=== PATIENT | male | born 1930 | race Caucasian/White ===

== ENCOUNTER 2018-10-06 12:51 | Emergency (ER) | payer OTHER ==
[2018-10-06] MEDS ORDERED: LEVALBUTEROL 1.25 MG/3 ML NEB ONE (14:42)
--- NOTE | 2018-10-06 14:43 | RAD REPORT ---
EXAM DESCRIPTION: RAD - Chest Single View - 10/06/2018 2:35 pm CLINICAL HISTORY: Cough;Congestion Chest pain. COMPARISON: Chest Pa And Lat (2 Views) dated 12/23/2016; CHEST SINGLE VIEW dated 07/09/2014; CHEST SING LE VIEW dated 01/01/2014; CHEST PA AND LAT 2 VIEW dated 06/30/2012 FINDINGS: Portable technique limits examination quality. 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 The heart is moderately enlarged. No dis placed fractures.Sternotomy wires present. IMPRESSION: Fibrotic changes throughout the lungs without acute process seen.
[2018-10-06 14:58] LABS: Absolute Lymphocytes (CBC) 0.9 K/uL (0.7-4.9); Basophils % 0.4 % (0-1.3); Eosinophils % 7.2 % (0-4.4); Hematocrit 37.5 % (39.6-49.0); Lymphocytes % 22.2 % (15.3-44.8); MPV 9.6 fL (7.6-11.3); Monocytes % 8.8 % (3.3-12.3); RBC Red Blood Cell Count 3.75 M/uL (4.33-5.43)
[2018-10-06 14:59] LABS: Protime INR 1.3
[2018-10-06 15:15] LABS: Albumin 3.6 g/dL (3.4-5.0); Bilirubin Direct 0.2 mg/dL (0-0.2); Bilirubin Total 0.5 mg/dL (0.2-1.0); Magnesium 2.2 mg/dL (1.8-2.4); Potassium 5.2 mmol/L (3.5-5.1); Protein, Total 8.4 g/dL (6.4-8.2); Troponin (Emerg Dept Use Only) 0.06 ng/mL (0.0-0.045)
[2018-10-06] MEDS ORDERED: METOPROLOL TARTRATE 5 MG/5 ML INJ IV ONE (16:08)
--- NOTE | 2018-10-06 16:22 | EKG ---
Test Date: 2018-10-06 Test Time: 14:46:57 Hydraulic Bull Riveter Operator: JANICE/S MEASUREMENT RESULTS: Intervals: Rate: 69 [place]: QRSD: 152 QT: 460 QTc: 492 [place]: P: [place]: QRS: 91 T: -24 INTERPRETIVE STATEMENTS: Atrial fibrillation Right bundle branch block T wave abnormality, consider inferior ischemia or digitalis effect Abnormal ECG Compared to ECG 12/07/2014 22:57:39 T-wave abnormality now present Possible ischemia now present Sinus rhythm no longer present Electronically Signed On 10-06-18 16:21:13 CDT by Manas Marin
[2018-10-06] MEDS ORDERED: cloNIDine HCl 0.1 MG TAB ONE (17:15)
--- NOTE | 2018-10-06 18:33 | ER ---
Nurse's Notes [facility] Name: Jack Herzog Age: 87 yrs Sex: Male : 1930 Arrival Date: 10/06/2018 Time: 12:55 Bed 5 Private MD: James Noel T Diagnosis: Hypertension poorly controlled, Upper respiratory congestion. Cough Presentation: 10/06 13:02 Presenting complaint: Patient states: Congested cough for 3 days. Transition of care: ss patient was not received from another setting of care. Onset of symptoms was October 03, 2018. Risk Assessment: Do you want to hurt yourself or someone else? Patient reports no desire to harm self or others. Initial Sepsis Screen: Does the patient meet any 2 criteria? No. Patient's initial sepsis screen is negative. Does the patient have a suspected source of infection? No. Patient's initial sepsis screen is negative. Care prior to arrival: None. 13:02 Method Of Arrival: Wheelchair ss 13:02 Acuity: ANTOINE 3 ss Triage Assessment: 13:03 General: Appears in no apparent distress. comfortable, Behavior is calm, cooperative, ss appropriate for age. Pain: Denies pain. Neuro: Level of Consciousness is awake, alert, obeys commands, Oriented to person, place, time, situation, Appropriate for age. Respiratory: Reports cough that is Onset: The symptoms/episode began/occurred gradually, the patient has mild shortness of breath. Derm: Skin is intact, is healthy with good turgor, Skin is pink, warm \T\ dry. normal. 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 - Social history:: Smoking status: Patient/guardian denies using tobacco. - Ebola Screening: : Patient negative for fever greater than or equal to 101.5 degrees Fahrenheit, and additional compatible Ebola Virus Disease symptoms Patient denies exposure to infectious person Patient denies travel to an Ebola-affected area in the 21 days before illness onset No symptoms or risks identified at this time. Screenin:30 Abuse screen: Denies threats or abuse. Denies injuries from another. Nutritional sg screening: No deficits noted. Tuberculosis screening: No symptoms or risk factors identified. Never had TB. Fall Risk None identified. Assessment: 13:30 General: Appears in no apparent distress. well groomed, well developed, well nourished, sg Behavior is calm, cooperative, appropriate for age. Pain: Denies pain. Neuro: Level of Consciousness is awake, alert, obeys commands, Oriented to person, place, time, Editor House Organ are equal bilaterally Moves all extremities. Full function Gait is steady, Speech is normal, Facial symmetry appears normal, Pupils are PERRLA. Cardiovascular: Heart tones S1 S2 present Capillary refill is brisk in bilateral fingers Patient's skin is warm and dry. Chest pain is denied. Respiratory: Airway is patent Respiratory effort is even, unlabored, Respiratory pattern is regular, symmetrical, Breath sounds are coarse. GI: Abdomen is round non-distended, Reports tolerance of fluids, tolerance of food. : No signs and/or symptoms were reported regarding the genitourinary system. EENT: No signs and/or symptoms were reported regarding the EENT system. Derm: Skin is pink, warm \T\ dry. Musculoskeletal: Circulation, motion, and sensation intact. Range of motion: intact in all extremities, Swelling absent. 14:30 Reassessment: Patient appears in no apparent distress at this time. Patient and/or sg family updated on plan of care and expected duration. Pain level reassessed. Patient is alert, oriented x 3, equal unlabored respirations, skin warm/dry/pink. 15:35 Reassessment: Patient appears in no apparent distress at this time. Patient and/or sg family updated on plan of care and expected duration. Pain level reassessed. Patient is alert, oriented x 3, equal unlabored respirations, skin warm/dry/pink. reports throbbing in BUE, reports this sensation happens when the blood pressure is elevated Patient denies pain at this time. 16:30 Reassessment: Patient appears in no apparent distress at this time. Patient and/or sg family updated on plan of care and expected duration. Pain level reassessed. Patient is alert, oriented x 3, equal unlabored respirations, skin warm/dry/pink. 17:30 Reassessment: Patient is alert, oriented x 3, equal unlabored respirations, skin sg warm/dry/pink. awaiting new orders at this time, awaiting decrease in BP after medication administration as ordered Patient denies pain at this time. Vital Signs: 13:03 BP 193 / 80; Pulse 61; Resp 20; Temp 98.1; Pulse Ox 96% on R/A; Weight 79.83 kg; Height ss 5 ft. 10 in. (177.80 cm); 14:00 BP 192 / 72; Pulse 72; Resp 17; Pulse Ox 96% on R/A; sg 15:00 BP 181 / 94; Pulse 72; Resp 17; Pulse Ox 97% on R/A; sg 16:14 BP 173 / 87; Pulse 76; Pulse Ox 96% on R/A; sg 16:15 BP 173 / 87; Pulse 75; Pulse Ox 96% ; sg 16:30 BP 175 / 95; Pulse 72; Pulse Ox 95% on R/A; sg 16:45 BP 191 / 85; Pulse 73; Resp 17; Pulse Ox 95% on R/A; sg 17:00 BP 203 / 81; Pulse 77; Resp 18; Pulse Ox 96% on R/A; sg 17:15 BP 201 / 83; Pulse 73; Pulse Ox 95% on R/A; sg 18:18 BP 194 / 81; Pulse 72; Resp 18; Pulse Ox 100% on R/A; ss 19:16 BP 184 / 85; Pulse 71; ss 13:03 Body Mass Index 25.25 (79.83 kg, 177.80 cm) ss ED Course: 12:55 Patient arrived in ED. as 12:55 James Noel MD is Private Physician. as 13:03 Triage completed. ss 13:03 Arm band placed on left wrist. Patient placed in an exam room. ss 13:25 Chau Rousseau MD is Attending Physician. kdr 13:34 Justin Valencia, BRANDIE is Primary Nurse. sg 14:35 XRAY Chest (1 view) In Process Unspecified. EDMS 14:40 Initial Neb Treatment Given as ordered Patient was instructed and evaluated on sg procedure. 14:45 Initial lab(s) drawn, by me, sent to lab. First set of blood cultures drawn and held at sg bedside. Inserted saline lock: 22 gauge in right antecubital area, using aseptic technique. Blood collected. 14:53 EKG done, by player piano technician. reviewed by Chau Rousseau MD. sm3 18:30 Vamshi Head MD is Referral Physician. kdr 19:16 Patient has correct armband on for positive identification. ss 19:16 No provider procedures requiring assistance completed. IV discontinued, intact, ss bleeding controlled, No redness/swelling at site. Pressure dressing applied. Administered Medications: 14:40 Drug: Xopenex (3) 1.25 mg Route: Inhalation; sg 16:00 Drug: Lopressor 5 mg Route: IVP; Site: right antecubital; sg 16:30 Follow up: Response: No adverse reaction; Blood pressure is unchanged sg 17:14 Drug: cloNIDine 0.1 mg Route: PO; sg 18:00 Follow up: Response: No adverse reaction; Blood pressure is lowered sg Outcome: 18:31 Discharge ordered by . kdr 19:16 Discharged to home via wheelchair, with family. ss 19:16 Condition: good 19:16 Discharge instructions given to patient, family, Instructed on discharge instructions, follow up and referral plans. medication usage, Demonstrated understanding of instructions, follow-up care, medications, Prescriptions given X 3. 19:18 Patient left the ED. ss Signatures: Dispatcher [employer] EDMS Justin Valencia, RN RN Chau Rousseau MD MD kdr Danielle Gandara Shelby, RN RN Earnestine Bettencourt sm3
--- NOTE | 2018-10-06 18:33 | EDPHYS ---
Physician Documentation [facility] Name: Jack Herzog Age: 87 yrs Sex: Male : 1930 Arrival Date: 10/06/2018 Time: 12:55 Bed 5 Private MD: James Noel T ED Physician Chau Rousseau HPI: 10/06 14:11 This 87 yrs old Male presents to ER via Wheelchair with complaints of kdr Wheezing > 1 Year, Congestion. 14:11 The patient presents to the emergency department with wheezing, Current therapy: None, kdr that began without any particular precipitating event, the patient was reported to have. 14:12 The patient or guardian reports cough, that is intermittent, described as mild, with kdr productive sputum, that is yellow, difficulty breathing. Onset: The symptoms/episode began/occurred gradually, Thursday. Modifying factors: The symptoms are alleviated by nothing. the symptoms are aggravated by activity. Associated signs and symptoms: Pertinent positives: Pertinent negatives: chest pain, diarrhea, ear ache, fever, nausea, rhinorrhea, sore throat, vomiting. Severity of symptoms: At their worst the symptoms were mild in the emergency department the symptoms have improved mildly. The patient has not experienced similar symptoms in the past. The patient has been recently seen by a physician: the patient's primary care provider, Dr. Head. 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 - Social history:: Smoking status: Patient/guardian denies using tobacco. - Ebola Screening: : Patient negative for fever greater than or equal to 101.5 degrees Fahrenheit, and additional compatible Ebola Virus Disease symptoms Patient denies exposure to infectious person Patient denies travel to an Ebola-affected area in the 21 days before illness onset No symptoms or risks identified at this time. ROS: 14:12 Constitutional: Negative for fever, chills, and weight loss, Eyes: Negative for injury, kdr pain, redness, and discharge, ENT: Negative for injury, pain, and discharge, Neck: Negative for injury, pain, and swelling, Cardiovascular: Negative for chest pain, palpitations, and edema, Abdomen/GI: Negative for abdominal pain, nausea, vomiting, diarrhea, and constipation, Back: Negative for injury and pain, : Negative for injury, bleeding, discharge, and swelling, MS/Extremity: Negative for injury and deformity, Skin: Negative for injury, rash, and discoloration, Neuro: Negative for headache, weakness, numbness, tingling, and seizure activity. Psych: Negative for depression, anxiety, suicide ideation, homicidal ideation, and hallucinations, Allergy/Immunology: Negative for hives, rash, and allergies, Endocrine: Negative for neck swelling, polydipsia, polyuria, polyphagia, and marked weight changes, Hematologic/Lymphatic: Negative for swollen nodes, abnormal bleeding, and unusual bruising. 14:12 Respiratory: Positive for cough, dyspnea on exertion, shortness of breath, wheezing, Negative for hemoptysis, orthopnea, pleurisy. Exam: 14:12 Constitutional: This is a well developed, well nourished patient who is awake, alert, kdr and in no acute distress. Head/Face: Normocephalic, atraumatic. Eyes: Pupils equal round and reactive to light, extra-ocular motions intact. Lids and lashes normal. Conjunctiva and sclera are non-icteric and not injected. Cornea within normal limits. Periorbital areas with no swelling, redness, or edema. Neck: Trachea midline, no thyromegaly or masses palpated, and no cervical lymphadenopathy. Supple, full range of motion without nuchal rigidity, or vertebral point tenderness. No Meningismus. Chest/axilla: Normal chest wall appearance and motion. Nontender with no deformity. No lesions are appreciated. Cardiovascular: Regular rate and rhythm with a normal S1 and S2. No gallops, murmurs, or rubs. Normal PMI, no JVD. No pulse deficits. Abdomen/GI: Soft, non-tender, with normal bowel sounds. No distension or tympany. No guarding or rebound. No evidence of tenderness throughout. Back: No spinal tenderness. No costovertebral tenderness. Full range of motion. Skin: Warm, dry with normal turgor. Normal color with no rashes, no lesions, and no evidence of cellulitis. MS/ Extremity: Pulses equal, no cyanosis. Neurovascular intact. Full, normal range of motion. Neuro: Awake and alert, GCS 15, oriented to person, place, time, and situation. Cranial nerves II-XII grossly intact. Motor strength 5/5 in all extremities. Sensory grossly intact. Cerebellar exam normal. Normal gait. Psych: Awake, alert, with orientation to person, place and time. Behavior, mood, and affect are within normal limits. 14:12 Respiratory: the patient does not display signs of respiratory distress, Respirations: normal, Breath sounds: rales, wheezing: Vital Signs: 13:03 BP 193 / 80; Pulse 61; Resp 20; Temp 98.1; Pulse Ox 96% on R/A; Weight 79.83 kg; Height ss 5 ft. 10 in. (177.80 cm); 14:00 BP 192 / 72; Pulse 72; Resp 17; Pulse Ox 96% on R/A; sg 15:00 BP 181 / 94; Pulse 72; Resp 17; Pulse Ox 97% on R/A; sg 16:14 BP 173 / 87; Pulse 76; Pulse Ox 96% on R/A; sg 16:15 BP 173 / 87; Pulse 75; Pulse Ox 96% ; sg 16:30 BP 175 / 95; Pulse 72; Pulse Ox 95% on R/A; sg 16:45 BP 191 / 85; Pulse 73; Resp 17; Pulse Ox 95% on R/A; sg 17:00 BP 203 / 81; Pulse 77; Resp 18; Pulse Ox 96% on R/A; sg 17:15 BP 201 / 83; Pulse 73; Pulse Ox 95% on R/A; sg 18:18 BP 194 / 81; Pulse 72; Resp 18; Pulse Ox 100% on R/A; ss 19:16 BP 184 / 85; Pulse 71; ss 13:03 Body Mass Index 25.25 (79.83 kg, 177.80 cm) ss MDM: 14:12 Data reviewed: vital signs, nurses notes, lab test result(s), radiologic studies. kdr Counseling: I had a detailed discussion with the patient and/or guardian regarding: the historical points, exam findings, and any diagnostic results supporting the discharge/admit diagnosis, lab results, radiology results. 18:31 Patient medically screened. [facility] 10/06 14:09 Order name: Basic Metabolic Panel kdr 10/06 14:09 Order name: CBC with Diff kdr 10/06 14:09 Order name: LFT's kdr 10/06 14:09 Order name: Magnesium [facility] 10/06 14:09 Order name: NT PRO-BNP [facility] 10/06 14:09 Order name: PT-INR [facility] 10/06 14:09 Order name: Troponin (emerg Dept Use Only) [facility] 10/06 14:09 Order name: Lactate; Complete Time: 15:20 [facility] 10/06 14:09 Order name: Procalcitonin; Complete Time: 15:34 [facility] 10/06 14:10 Order name: Basic Metabolic Panel; Complete Time: 15:20 EDMS 10/06 14:10 Order name: CBC with Automated Diff; Complete Time: 15:34 EDMS 10/06 14:11 Order name: Liver (Hepatic) Function; Complete Time: 15:20 EDMS 10/06 14:11 Order name: Magnesium; Complete Time: 15:20 EDMS 10/06 14:11 Order name: NT PRO-BNP; Complete Time: 15:20 EDMS 10/06 14:09 Order name: XRAY Chest (1 view); Complete Time: 15:08 [facility] 10/06 14:09 Order name: EKG; Complete Time: 14:11 [facility] 10/06 14:09 Order name: Cardiac monitoring; Complete Time: 14:22 [facility] 10/06 14:09 Order name: EKG - Nurse/Tech; Complete Time: 14:57 [facility] 10/06 14:09 Order name: IV Saline Lock; Complete Time: 14:22 [facility] 10/06 14:09 Order name: Labs collected and sent; Complete Time: 14:22 [facility] 10/06 14:09 Order name: O2 Per Protocol; Complete Time: 14:22 [facility] 10/06 14:09 Order name: O2 Sat Monitoring; Complete Time: 14: [facility] 10/06 14:11 Order name: Protime (+INR); Complete Time: 15:20 EDMS 10/06 14:11 Order name: Troponin (Emerg Dept Use Only); Complete Time: 15:20 EDMS Administered Medications: 14:40 Drug: Xopenex (3) 1.25 mg Route: Inhalation; sg 16:00 Drug: Lopressor 5 mg Route: IVP; Site: right antecubital; sg 16:30 Follow up: Response: No adverse reaction; Blood pressure is unchanged sg 17:14 Drug: cloNIDine 0.1 mg Route: PO; sg 18:00 Follow up: Response: No adverse reaction; Blood pressure is lowered sg Disposition: 10/06/18 18:31 Discharged to Home. Impression: Hypertension poorly controlled, Upper respiratory congestion. Cough. - Condition is Stable. - Discharge Instructions: Acute Bronchitis, Gubo-ge-Pyam, Upper Respiratory Infection, Adult, [id number], Cough, Adult, [id number], Managing Your Hypertension. - Prescriptions for Prednisone 20 mg Oral Tablet - take 1 tablet by ORAL route once daily for 5 days; 5 tablet. Zyrtec 10 mg Oral Tablet - take 1 tablet by ORAL route once daily As needed; 20 tablet. Albuterol Sulfate 90 mcg/actuation - inhale 1-2 puff by INHALATION route every 4-6 hours; 1 Inhaler. - Medication Reconciliation Form, Thank You Letter form. - Follow up: Vamshi Head MD; When: Thursday; Reason: Further diagnostic work-up, Recheck today's complaints, Continuance of care, Re-evaluation by your physician. - Notes: Follow-up Thursday with Dr. Head Signatures: Dispatcher [employer] EDJustin Hale RN RN sg Chau Rousseau MD MD [facility] Joceline Fernandez RN RN ss Corrections: (The following items were deleted from the chart) 19:18 18:31 10/06/2018 18:31 Discharged to Home. Impression: Hypertension poorly controlled, ss Upper respiratory congestion. Cough. Condition is Stable. Forms are Medication Reconciliation Form, Thank You Letter, Antibiotic Education, Prescription Opioid Use. Follow up: Vamshi Head; When: Thursday; Reason: Further diagnostic work-up, Recheck today's complaints, Continuance of care, Re-evaluation by your physician. kdr
[2018-10-06 20:46] VITALS: TEMP 98.1
[2018-10-06 21:01] VITALS: O2SAT 100
[2018-10-06 21:03] VITALS: BP 184/85
== END 2018-10-06 19:18 | disposition home or self-care (01) ==
LOC: ER 12:51
DX: I10 Essential (primary) hypertension (principal); R05 Cough; R09.89 Other specified symptoms and signs involving the circulatory and respiratory systems; Z88.1 Allergy status to other antibiotic agents; Z88.0 Allergy status to penicillin
CPT/HCPCS: 36415; 71045; 80048; 80076; 83605; 83735; 83880; 84145; 84484; 85025; 85610; 93005; 96374; 99284

== ENCOUNTER 2019-06-28 13:34 | Inpatient (IN) | payer OTHER ==
[2019-06-28 14:17] VITALS: BMI 25.9
[2019-06-28] MEDS ORDERED: ACETAMINOPHEN 500 MG TAB PO PRN (14:29)
[2019-06-28] MEDS ORDERED: ONDANSETRON 4 MG/2 ML VIAL IV PRN (14:29)
[2019-06-28] MEDS ORDERED: NA CHLORIDE 0.9% 1,000 ML IV SCH (15:00)
[2019-06-28 15:26] LABS: Absolute Lymphocytes (CBC) 0.8 K/uL (0.7-4.9); Basophils % 0.7 % (0-1.3); Lymphocytes % 25.5 % (15.3-44.8); MPV 9.8 fL (7.6-11.3); RBC Red Blood Cell Count 3.26 M/uL (4.33-5.43)
--- NOTE | 2019-06-28 15:29 | EKG ---
Test Date: 2019-06-28 Test Time: 15:11:39 Cable Former: JANICE MEASUREMENT RESULTS: Intervals: Rate: 69 [place]: QRSD: 172 QT: 466 QTc: 499 [place]: P: [place]: QRS: 161 T: -20 INTERPRETIVE STATEMENTS: Atrial fibrillation Right bundle branch block T wave abnormality, consider inferior ischemia or digitalis effect Abnormal ECG Compared to ECG 10/06/2018 14:46:57 No significant changes Electronically Signed On 06-28-19 15:28:31 CDT by Vamshi Head
[2019-06-28 15:42] LABS: Albumin 3.3 g/dL (3.4-5.0); Bilirubin Total 0.7 mg/dL (0.2-1.0); Magnesium 2.1 mg/dL (1.8-2.4); Phosphorus 3.4 mg/dL (2.5-4.9); Protein, Total 8.2 g/dL (6.4-8.2)
[2019-06-28] MEDS ORDERED: HYDRALAZINE HCL 20 MG/ML VIAL IV PRN (15:45)
[2019-06-28 15:51] LABS: Potassium 6.4 mmol/L (3.5-5.1)
[2019-06-28] MEDS ORDERED: D50W 25 GM/50 ML SYRINGE/VIAL IV PRN (15:53)
[2019-06-28] MEDS ORDERED: GLUCAGON 1 MG/VIAL IM PRN (15:53)
[2019-06-28] MEDS ORDERED: ALBUTEROL 2.5 MG/3 ML NEB SOL NEB ONE ×2 (16:00→17:00)
[2019-06-28] MEDS: DOXAZOSIN 4 MG TAB PO SCH (16:00)
[2019-06-28 16:08] LABS: Urine Appearance CLEAR; Urine Bilirubin NEGATIVE (NEG); Urine Blood 1+ (NEG); Urine Color YELLOW; Urine Glucose TRACE (NEG); Urine Protein 3+ (NEG); Urine Specific Gravity 1.015 (1.005-1.030); Urine Urobilinogen 0.2 mg/dL (0.2-1.0)
[2019-06-28] MEDS ORDERED: INSULIN -REGULAR HUMAN 50 UNIT/0.5 ML ML IV ONE (16:15)
[2019-06-28] MEDS: INSULIN -REGULAR HUMAN 50 UNIT/0.5 ML ML SQ SCH ×2 (16:30→20:42)
[2019-06-28 16:43] LABS: Urine Bacteria <20 /HPF (NONE SEEN); Urine Culture Reflex Order NOT NEEDED; Urine RBC <5 /HPF (NONE SEEN)
--- NOTE | 2019-06-28 16:52 | RAD REPORT ---
EXAM DESCRIPTION: US - Extrem Venous W Compress Danial - 06/28/2019 4:35 pm CLINICAL HISTORY: lower ext swelling Bilateral leg edema and swelling. COMPARISON: No comparisons TECHNIQUE: Real-time sonographic interrogation of the left and right lower extremity deep venous sys tems was performed. FINDINGS: Normal compressibility, flow augmentation, phasic flow and spontaneous flow is identified in both the left and right lower extremity deep venous systems. IMPRESSION: No sonographic evidence of left or right lower extremity deep venous thrombosis.
--- NOTE | 2019-06-28 16:56 | RAD REPORT ---
EXAM DESCRIPTION: US - Renal Ultrasound-Complete - 06/28/2019 4:35 pm CLINICAL HISTORY: janine,ANASARCA Flank pain COMPARISON: RP EXAM COMPLETE dated 04/23/2012 FINDINGS: Both kidneys are normal in size, shape and echotexture. The right kidney measures 8.8 x 4.5 x 4.3 cm. No hydronephrosis, focal mass or perinephric fluid. The left kidney measures 10.5 x 5.3 x 5.0 cm. No hydronephrosis, focal mass or perinephric fluid. The urinary bladder is incompletely distended without gross abnormality seen. IMPRESSION: Unremarkable renal sonogram.
[2019-06-28] MEDS ORDERED: CALCIUM GLUC 10% INJ 4.65 MEQ in NA CHLORIDE 0.9% 100 ML IV ONE (17:00)
[2019-06-28] MEDS ORDERED: D50W 25 GM/50 ML SYRINGE/VIAL IV ONE (17:00)
[2019-06-28] MEDS ORDERED: SOD POLYSTYREN SUL 15 GM/60 ML UCUP PO ONE (17:00)
[2019-06-28] MEDS ORDERED: ENOXAPARIN 30 MG/0.3 ML SQ SCH (17:00)
[2019-06-28] MEDS: NA CHLORIDE 0.9% 1,000 ML IV SCH (17:01)
--- NOTE | 2019-06-28 17:19 | RAD REPORT ---
EXAM DESCRIPTION: RAD - Chest Single View - 06/28/2019 5:13 pm CLINICAL HISTORY: SOB Chest pain. COMPARISON: Chest Single View dated 10/06/2018; Chest Pa And Lat (2 Views) dated 12/23/2016; CHEST SING LE VIEW dated 07/09/2014; CHEST SINGLE VIEW dated 01/01/2014 FINDINGS: Portable technique limits examination quality. Mild interstitial prominence is again seen, unchanged. This has the appearance of chronic fibrosis. T he heart is normal in size. Sternotomy wires present. IMPRESSION: No acute intrathoracic process suspected.
[2019-06-28] MEDS ORDERED: DOXAZOSIN 2 MG TAB ONE (17:34)
[2019-06-28] MEDS: APIXABAN 2.5 MG TABLET PO SCH (20:41)
[2019-06-28] MEDS: METOPROLOL TAR 50 MG TAB PO SCH (20:41)
--- NOTE | 2019-06-29 01:38 | HP ---
Date of Admission: 06/28/2019 Chief Complaint: Orthopnea, edema. Code Status: Full. Patient has a medical power of trust and estates attorney and living will. Consultants: Dr. Sweeney with Nephrology. History Of Present Illness: Patient is an 88-year-old male with past medical history of coronary artery disease, status post CABG; diabetes mellitus type 2, diet controlled, not on any specific medications, well controlled; essential hypertension; hepatitis; kidney disease with creatinine around 3, who has been in his usual state of health until recently approximately several days ago. Patient started having edema of his lower extremities with some redness. Patient was started on doxycycline by his primary with no significant change. He is also having some orthopnea, was seen by his psychiatric clinical nurse specialist today and was recommended to go see his sieve grader tender, who recommended the patient to be admitted to the hospital for further evaluation and workup, possible initiation of dialysis. Patient's symptoms are constant, moderate, progressively worsening. He otherwise denies any nausea, vomiting, fever, chills, cough, congestion. No fever. Patient did report some diarrhea, which is likely secondary to his antibiotics. Past Medical History: Hypertension, coronary artery disease, noninsulin- requiring diabetes, chronic kidney disease stage 3, hepatitis. Surgical History: Heart stents on 12/27/2013, triple bypass in 2005, carotid artery surgery, TURP in 2012, carpal tunnel surgery to the right wrist, bilateral cataract surgery. Allergies: PENICILLIN AND BACTRIM CAUSES ANAPHYLAXIS. Medications: As per medication reconciliation list. Social History: Patient denies any tobacco use, alcohol use, or illicit drug use. Patient is , independent in his activities of daily living. Family History: Mother and brother both had heart disease. Review of Systems: Ten-point system reviewed, negative except as per HPI. Physical Examination: Vital Signs: Temperature 97.9, heart rate 75, blood pressure 187/91, respirations 16, O2 98% on room air. General: Awake, alert, oriented x3, not in any acute distress. Mildly ill- appearing male. CV: S1, S2. Regular rate and rhythm. Peripheral pulses weak. HEENT: Normocephalic, atraumatic. PERRLA. EOMI. Moist mucous membranes. Oropharynx is clear. Poor dentition. Neck: Supple. Trachea midline. Respiratory: Somewhat diminished breath sounds. No wheezing or stridor. Minimal crackles heard. Gastrointestinal: Abdomen is soft, nontender, nondistended. Positive bowel sounds. No guarding or rigidity. Extremities: No clubbing or cyanosis. Patient has bilateral lower extremity edema with some calf tightness. No calf tenderness. Neuro: Cranial nerves 2 through 12 intact grossly. No focal neurological deficit. Speech is normal. Strength is symmetric bilateral upper and lower extremities. Sensation intact to light touch. Skin: Patient has chronic venous stasis changes of bilateral lower extremities ; however, the right lower extremity is slightly more erythematous with some warmth to touch. Psych: Mood is okay. Affect is full. Insight and judgment are good. Laboratory Data: Currently pending. Assessment: An 88-year-old male with: 1. Shortness of breath, likely secondary to volume overload and anasarca. We will obtain chest x-ray and . We will provide supplemental oxygen as needed. 2. Anasarca, likely due to worsening kidney function. We will obtain BMP. Appreciate Nephrology input. Patient may need to be initiated on dialysis. 3. Coronary artery disease, status post CABG and stents. We will resume home medications as appropriate. Patient is on Eliquis for anticoagulation. 4. Essential hypertension, stable. We will resume home medications. 5. Chronic venous stasis changes of lower extremities. We will obtain bilateral venous Doppler to rule out DVT. Patient does have some swelling and tightness. 6. Orthopnea, likely secondary to anasarca. We will obtain echocardiogram to rule out congestive heart failure. Patient has risk factors including heart disease and hypertension, long-standing DVT prophylaxis with Lovenox renally dosed. Plan: 1. Admit patient to Med-Surg, place as inpatient. Length of stay greater than 2 midnights. Patient was recently on doxycycline for possible lower extremity cellulitis. Doubt cellulitis at this time. 2. Resume home medications as appropriate. We will order CBC, CMP, BNP, TSH, chest x-ray, and echocardiogram. We will rule out DVT with Doppler sonogram. ADDENDUM:labs reviewed. potassium elevated. CXR reviewed. doppler sono reviewed. no DVT. Assessment Hyperkalemia:will give treatment and recheck in 2 hrs /ANITHA Voice ID: [id number] [facility]IVERS[facility] HOSPITALJuliette
[2019-06-29] MEDS ORDERED: TEMAZEPAM 15 MG CAP PO PRN (02:48)
[2019-06-29 04:26] LABS: Absolute Lymphocytes (CBC) 0.6 K/uL (0.7-4.9); Basophils % 0.6 % (0-1.3); Hematocrit 27.9 % (39.6-49.0); Lymphocytes % 20.5 % (15.3-44.8); MPV 11.2 fL (7.6-11.3); RBC Red Blood Cell Count 2.78 M/uL (4.33-5.43)
[2019-06-29] MEDS: DOXAZOSIN 4 MG TAB PO SCH ×2 (04:51→16:00)
[2019-06-29 04:56] LABS: Blood Morphology Comment NOTED (NOT SEEN); Burr Cells 1+; Platelet Estimate DECR; Urine White Blood Cell Casts OK
[2019-06-29 05:22] LABS: Albumin 2.8 g/dL (3.4-5.0); Bilirubin Total 0.5 mg/dL (0.2-1.0); Ferritin 56.9 ng/mL (26-388); Folic Acid, (Folate) 7.4 ng/mL (3.1-17.5); Protein, Total 6.8 g/dL (6.4-8.2); Uric Acid 5.9 mg/dL (3.5-7.2)
[2019-06-29 05:24] LABS: Potassium 5.6 mmol/L (3.5-5.1)
[2019-06-29] MEDS ORDERED: SOD POLYSTYREN SUL 15 GM/60 ML UCUP PO ONE (06:20)
[2019-06-29] MEDS: INSULIN -REGULAR HUMAN 50 UNIT/0.5 ML ML SQ SCH ×4 (07:30→21:00)
[2019-06-29 08:00] LABS: Rheumatoid Factor NEG (NEG)
[2019-06-29] MEDS ORDERED: TORSEMIDE 20 MG TAB PO SCH (09:00)
[2019-06-29 09:49] LABS: Urine Protein/Creatinine Ratio 2.52 ratio (<0.15)
[2019-06-29] MEDS: APIXABAN 2.5 MG TABLET PO SCH ×2 (09:51→20:30)
[2019-06-29] MEDS: SODIUM BICARB 325 MG TAB PO SCH ×2 (09:51→20:30)
[2019-06-29] MEDS: FUROSEMIDE 40 MG/4 ML VIAL IV SCH ×2 (09:51→17:33)
[2019-06-29] MEDS: METOPROLOL TAR 50 MG TAB PO SCH ×2 (09:54→21:00)
[2019-06-29] MEDS: NA CHLORIDE 0.9% 1,000 ML IV SCH (11:00)
--- NOTE | 2019-06-29 12:53 | P.PN ---
Subjective Date of Service: 06/29/19 Patient states his lower extremity swelling have significantly improved. He also states the shortness of breath has gotten much better. Physical Examination - Vital Signs Temperature: 97.9 F Blood Pressure: 130/60 Pulse: 63 Respirations: 17 Pulse Ox (%): 97 - Physical Exam General: Alert, In no apparent distress, Oriented x3 HEENT: PERRLA, Mucous membr. moist/pink, Sclerae nonicteric Neck: Supple, JVD not distended Respiratory: Clear to auscultation bilaterally, Normal air movement Cardiovascular: Regular rate/rhythm, Normal S1 S2, Edema (Bilateral lower extremities, right greater than left.) Gastrointestinal: Normal bowel sounds, Soft and benign, Non-distended, No tenderness Musculoskeletal: Erythema (Bilateral lower extremities, worse on the right) Integumentary: Erythema Neurological: Normal speech, Normal strength at 5/5 x4 extr - Studies Laboratory Data (last 24 hrs) 06/29/19 04:07: Sodium 142, Potassium 5.6 H*, BUN 64 H, Creatinine 3.36 H, Glucose 151 H, Uric Acid 5.9 D, Phosphorus 3.0, Total Bilirubin 0.5, AST 15, ALT 15, Alkaline Phosphatase 75 06/29/19 04:07: WBC 2.8 L, Hgb 9.2 L, Hct 27.9 L D, Plt Count 67 L D 06/28/19 19:00: Potassium 5.5 H 06/28/19 14:48: Sodium 143, Potassium 6.4 H*, BUN 62 H, Creatinine 3.32 H, Glucose 97, Phosphorus 3.4, Magnesium 2.1, Total Bilirubin 0.7, AST 21, ALT 17, Alkaline Phosphatase 87 06/28/19 14:48: WBC 3.1 L, Hgb 10.9 L, Hct 33.0 L, Plt Count 84 L Assessment And Plan - Current Problems (Diagnosis) (1) Volume overload Current Visit: Yes Status: Acute (2) Chronic kidney disease, stage 4 (severe) Current Visit: Yes Status: Chronic (3) Bilateral leg edema Current Visit: Yes Status: Chronic (4) Coronary artery disease Current Visit: Yes Status: Chronic (5) Chronic venous stasis dermatitis Current Visit: Yes Status: Chronic (6) Anemia Current Visit: Yes Status: Chronic - Plan Nephrology input appreciated. Patient has clinically improved. Continue IV Lasix Monitor renal function on Lasix therapy. Nephrology is following. Keep lower extremities elevated while in sitting or supine position. Correct hyperkalemia. Monitor CBC and renal panel.
[2019-06-29] MEDS ORDERED: CALCITROL 0.25 MCG CAP PO SCH (13:00)
[2019-06-29] MEDS ORDERED: DOXAZOSIN 2 MG TAB ONE (16:31)
--- NOTE | 2019-06-29 17:38 | CON ---
Date of Consultation: 06/29/2019 Reason For Consultation: Elevated BUN and creatinine, fluid management. History Of Present Illness: This is a pleasant 88-year-old gentleman, well known to me from the [facility] with significant past medical history of coronary artery disease, status post CABG, complicated wi th congestive heart failure; diabetes, complicated with neuropathy, nephropathy; hypertension; hyperl ipidemia; chronic kidney disease, baseline, stage 4, secondary to diabetic nephropathy, baseline crea tinine around 2.6 to 2.8, GFR around 22, was last seen in the office almost a couple of years ago. Sisi jerez apparently came to his primary in March with his GFR down to the 18s, then repeated lab chris wing further decline in the creatinine. For that reason, referred back to us. The patient denied ta rigo any nonsteroidal. No recent change in his medication. The patient is complaining of some short ness of breath and increase in his leg swelling. For that reason, patient was referred to the hospit al. Over the night, the patient was started on Lasix. Patient recently was treated with doxycycline and was also increased his torsemide by his cement patcher. The patient denied taking any nonsteroidal. No IV contrast. No other change in his medication. No fever. No chills. As I mentioned, over the night, patient was started on aggressive diuresis. Kidn ey function stabilized. Shortness of breath has been subsided. Past Medical History: Includes. 1.Hypertension. 2.Coronary artery disease, complicated with congestive heart failure, status post CABG. 3.Diabetes complicated with neuropathy and nephropathy. 4.Chronic kidney disease, stage 4, advanced, normal size kidney, proteinuric, secondary to cardioren al/hypertensive nephrosclerosis/diabetic nephropathy. 5.Prostate hypertrophy status post TURP. Past Surgical History: Includes, 1.PTCA back in 2013. 2.Bypass in 2005. 3.Carotid endarterectomy. 4.TURP. 5.Carpal tunnel. 6.Cataract. Allergies: TO PENICILLIN AND BACTRIM. Home Medications: Include, 1.Torsemide. 2.Spironolactone. 3.Doxycycline. 4.Doxazosin. 5.Eliquis. 6.Metoprolol. Social History: Lives with the family. Denies smoking. Denies drinking. Denies drug abuse. Family History: Positive for heart disease and diabetes. Review of Systems: Head and Neck: No red eye. No ear pain. GI: No nausea, no vomiting. : No polyuria, has nocturia. Under Trimmer: Not applicable. Respiratory: Has shortness of breath. Cardiovascular: Has leg swelling. Endocrine: No polydipsia. Skin: No rash. Neuro: Has neuropathy. Musculoskeletal: Generalized fatigue. Physical Examination: Vital Signs: When I saw the patient, blood pressure of 130/60, pulse of 63, afebrile. Chest: Crackles, bilateral bases. Heart: S1, S2. Systolic murmur. Abdomen: Soft. Nontender. Extremities: +1 edema, erythema bilateral. Laboratory Data: WBC 2.8, H and H 9.2/27.9, platelets 67. Sodium 142, potassium 5.6, bicarb 20, BUN 64, creatinine 3.3, GFR of 17, glucose 151, uric acid 5.9, calcium 8.6, phosphorus of 3. Albumin 2. 8. Serum protein electrophoresis still pending. Folate 7.4. TSH of 2.5. PTH of 379. Urinalysis, negative for infection. PC ratio 2.5. Serology and immunology still pending. Renal ultrasound, nor mal sized kidney, 8.8 x 10.5. Assessment And Plan: 1.Chronic kidney disease, stage 4, progression, over-volume with respiratory symptoms. I am going t o go ahead and discontinue intravenous fluid. Continue current diuresis dose, and we will switch to intravenous Lasix and we will monitor the patient closely. 2.Acidosis, non-anion gap, secondary to renal failure. I agree with sodium bicarb. We will monitor . 3.Hyperkalemia, secondary to renal failure, on spironolactone. Discontinue spironolactone. Start d iuresing, and we will monitor. 4.Anemia of chronic kidney disease. We will send for anemia workup with the presence of hyperkalemi a. Gastrointestinal loss needs to be ruled out. We will send for fecal occult. 5.secondary hyperparathyroidism. Start the patient on calcitriol. We will follow up on the vitamin D level. 6.Diabetes. As by primary. 7.Congestive heart failure. We will optimize the fluid status. 8.Cellulitis of the lower extremity. I will start the patient on Levaquin. Thank you, Dr. Simmons for allowing us to participate in the care of your patient. MARIELA Voice ID: [id number] Report ID: [id number]
[2019-06-30] MEDS: DOXAZOSIN 4 MG TAB PO SCH ×2 (04:20→16:00)
[2019-06-30] MEDS: INSULIN -REGULAR HUMAN 50 UNIT/0.5 ML ML SQ SCH ×3 (07:30→16:30)
[2019-06-30] MEDS ORDERED: levoFLOXacin 250 MG TAB PO SCH (09:00)
[2019-06-30 09:51] LABS: Albumin 3.2 g/dL (3.4-5.0); Ferritin 63.2 ng/mL (26-388); Folic Acid, (Folate) 10.2 ng/mL (3.1-17.5); Potassium 5.5 mmol/L (3.5-5.1)
[2019-06-30 10:06] VITALS: O2SAT 97
[2019-06-30] MEDS: SODIUM BICARB 325 MG TAB PO SCH (10:07)
[2019-06-30] MEDS: APIXABAN 2.5 MG TABLET PO SCH (10:07)
[2019-06-30] MEDS: FUROSEMIDE 40 MG/4 ML VIAL IV SCH ×2 (10:08→16:46)
[2019-06-30] MEDS: METOPROLOL TAR 50 MG TAB PO SCH (10:11)
[2019-06-30] MEDS ORDERED: ALBUTEROL 2.5 MG/3 ML NEB SOL NEB ONE (10:48)
[2019-06-30] MEDS ORDERED: D50W 25 GM/50 ML SYRINGE/VIAL IV PRN (10:49)
[2019-06-30] MEDS ORDERED: D50W 25 GM/50 ML SYRINGE/VIAL IV ONE (10:49)
[2019-06-30] MEDS ORDERED: INSULIN -REGULAR HUMAN 50 UNIT/0.5 ML ML IV ONE (10:49)
[2019-06-30] MEDS ORDERED: GLUCAGON 1 MG/VIAL IM PRN (10:49)
[2019-06-30] MEDS ORDERED: SOD FERRIC GLUC COMPLX/SUCROSE 250 MG in NA CHLORIDE 0.9% 250 ML IV SCH (11:00)
--- NOTE | 2019-06-30 12:18 | ECHO ---
HEIGHT: 5 ft 10 in WEIGHT: 181 lb 0 oz DATE OF STUDY: 06/30/[address]: Dinesh Macias MD 2-DIMENSIONAL: YES M.MODE: YES DOPPLER: YES COLOR FLOW: YES TDS: NO PORTABLE: NO DEFINITY: NO BUBBLE STUDY: NO DIAGNOSIS: EDEMA CARDIAC HISTORY: CATHERIZATION: YES SURGERY: YES PROSTHETIC VALVE: NO PACEMAKER: NO MEASUREMENTS (cm) DIASTOLIC (NORMALS) SYSTOLIC (NORMALS) IVSd 1.1 (0.6-1.2) LA Diam 4.0 (1.9-4.0) LVEF 67% LVIDd 4.6 (3.5-5.7) LVIDs 2.9 (2.0-3.5) %FS 37% LVPWd 1.1 (0.6-1.2) Ao Diam 2.9 (2.0-3.7) 2 DIMENSIONAL ASSESSMENT: RIGHT ATRIUM: NORMAL LEFT ATRIUM: NORMAL RIGHT VENTRICLE: NORMAL LEFT VENTRICLE: NORMAL TRICUSPID VALVE: NORMAL MITRAL VALVE: MILD PULMONARY HYPERTENSION PULMONIC VALVE: NORMAL AORTIC VALVE: SCLEROSIS PERICARDIAL EFFUSION: NONE AORTIC ROOT: NORMAL LEFT VENTRICULAR WALL MOTION: NORMAL DOPPLER/COLOR FLOW: MILD TRICUSPID REGURGITATION. MILD PULMONARY HYPERTENSION. COMMENTS: MILD PULMONARY HYPERTENSION. RIGHT VENTRICULAR SYSTOLIC PRESSURE 43 mmHg. NORMAL LEFT VENTRICULAR SIZE AND FUNCTION. MILD PULMONARY HYPERTENSION. AORTIC SCLEROSIS WITH NO STENOSIS. TECHNOLOGIST: Rogerio PERDOMO
--- NOTE | 2019-06-30 14:00 | PN ---
Date of Progress Note: 06/30/2019 Subjective: The patient was admitted with over-volume acute kidney injury. Physical Examination: Vital Signs: When I saw the patient, blood pressure 153/67, pulse of 67, afebrile. The patient had urine output of 2200. Chest: Crackles in the base. Heart: S1, S2. Regular. Abdomen: Soft, nontender. Extremity: Plus edema, but much better. Erythema has been subsided. Laboratory Data: WBC 2.8, H and H 9.2/27.9, platelets of 67. Sodium 143, potassium 5.5, bicarb 22, BUN 59, creatinine 3.6, calcium 8.9, magnesium normal, phosphorus 4. Iron saturation of 18, ferritin of 63, albumin 3.2, folate of 10. Current Medications: The patient is on include: 1.Levaquin. 2.Eliquis. 3.Cardura. 4.Metoprolol. 5.Temazepam. 6.Lasix 80 b.i.d. 7.Sodium bicarb oral 650 b.i.d. 8.Calcitriol. Assessment And Plan: 1.Acute kidney injury on chronic kidney disease, progression of the disease. Normal-sized kidney, p roteinuric with close to nephrotic range of proteinuria, starting to be in normal volume. I am going to go ahead and continue on the diuresis and we will monitor the patient. Patient will be cleared f rom the Renal standpoint for discharge planning. To follow up in the office in 2-3 weeks. No need t o initiate any renal replacement therapy. 2.Hypertension. Controlled, optimal. Continue current medication. We will keep utilizing blood pr essure to establish better volume control. 3.Hyperkalemia. Continue diuresis. I am going to give the patient albuterol nebulizer and D50 with insulin and we will follow up the patient. We will start the patient on Veltassa as an outpatient. 4.Secondary hyperparathyroidism. Continue calcitriol. 5.Iron-deficiency anemia with a drop in hemoglobin. Patient is going to need GI workup. 6.Diabetes. As by primary. JATIN/MODL Voice ID: [id number] Report ID: [id number]
--- NOTE | 2019-06-30 14:25 | P.DS ---
Admission Date: 06/28/19 Discharge Date: 06/30/19 Disposition: ROUTINE DISCHARGE Discharge Condition: FAIR Consultations: Nephrology-Dr. Sweeney. - Problems (1) Volume overload Current Visit: Yes Status: Acute (2) Chronic kidney disease, stage 4 (severe) Current Visit: Yes Status: Chronic (3) Bilateral leg edema Current Visit: Yes Status: Chronic (4) Coronary artery disease Current Visit: Yes Status: Chronic (5) Chronic venous stasis dermatitis Current Visit: Yes Status: Chronic (6) Anemia Current Visit: Yes Status: Chronic Brief History of Present Illness: 88-year-old gentleman with a history chronic kidney disease, diabetes and cardiac disease presented to the emergency department with progressive lower extremity swelling and orthopnea. The patient had hyperkalemia with potassium 6.4 in the ED. His BNP was also markedly elevated. Measures to correct the hyperkalemia was started in the ED patient admitted for further management. Hospital Course: Patient received multiple doses of oral Kayexalate, another treatment for hyperkalemia including insulin, and D50 and BICARB. The patient was seen and evaluated by nephrology Dr. Sweeney. Patient was started on oral bicarb, Aldactone discontinued, and started on IV Lasix therapy for volume overload and peripheral edema. Patient's symptoms improved with treatment, hyperkalemia improved. Echocardiogram reported normal EF and mild pulmonary hypertension. He was treated for possible cellulitis of the lower extremity with oral antibiotics. Patient clinical condition has improved. He is discharged with with increased dose of Lasix and also to start Veltassa to treat the hyperkalemia. Vital Signs/Physical Exam: Temp Pulse Resp BP Pulse Ox 97.7 F 57 16 148/67 H 97 06/30/19 12:00 06/30/19 12:00 06/30/19 12:00 06/30/19 12:00 06/30/19 12:00 General: Alert, In no apparent distress, Oriented x3 HEENT: Mucous membr. moist/pink, Sclerae nonicteric Neck: Supple, JVD not distended Respiratory: Clear to auscultation bilaterally, Normal air movement Cardiovascular: Regular rate/rhythm, Normal S1 S2, Edema (1+ bilateral lower extremity pitting edema.) Gastrointestinal: Normal bowel sounds, Soft and benign, Non-distended, No tenderness Integumentary: Erythema (Mild erythema of bilateral lower extremities.) Neurological: Normal speech, Normal strength at 5/5 x4 extr Laboratory Data at Discharge: WBC 2.8 K/uL (4.3-10.9) L 06/29/19 04:07 Hgb 9.2 g/dL (13.6-17.9) L 06/29/19 04:07 Hct 27.9 % (39.6-49.0) L D 06/29/19 04:07 Plt Count 67 K/uL (152-406) L D 06/29/19 04:07 Sodium 143 mmol/L (136-145) 06/30/19 04:31 Potassium 5.5 mmol/L (3.5-5.1) H 06/30/19 04:31 BUN 59 mg/dL (7-18) H 06/30/19 04:31 Creatinine 3.60 mg/dL (0.55-1.3) H 06/30/19 04:31 Glucose 94 mg/dL (74-106) 06/30/19 04:31 Uric Acid 5.9 mg/dL (3.5-7.2) D 06/29/19 04:07 Phosphorus 4.0 mg/dL (2.5-4.9) 06/30/19 04:31 Magnesium 2.1 mg/dL (1.8-2.4) 06/28/19 14:48 Total Bilirubin 0.5 mg/dL (0.2-1.0) 06/29/19 04:07 AST 15 U/L (15-37) 06/29/19 04:07 ALT 15 U/L (12-78) 06/29/19 04:07 Alkaline Phosphatase 75 U/L (45-117) 06/29/19 04:07 Home Medications: Doxazosin [Cardura*] 2 tab PO Q12H 01/02/14 Metoprolol Tartrate [Lopressor*] 2 tab PO BID 01/02/14 Apixaban [Eliquis *] 2.5 mg PO BID 06/28/19 Calcitrol [Rocaltrol*] 0.25 mcg PO Q48H #15 cap 06/30/19 Furosemide [Lasix] 80 mg PO BID #60 tablet 06/30/19 Na Bicarb Tab [Sodium Bicarb 325 MG Tab*] 650 mg PO BID #60 tab 06/30/19 Patiromer Calcium Sorbitex [Veltassa] 8.4 gm PO DAILY #30 powd.pack 06/30/19 levoFLOXacin [Levaquin*] 250 mg PO DAILY #5 tab 06/30/19 New Medications: Calcitrol [Rocaltrol*] 0.25 mcg PO Q48H #15 cap Furosemide [Lasix] 80 mg PO BID #60 tablet levoFLOXacin [Levaquin*] 250 mg PO DAILY #5 tab Na Bicarb Tab [Sodium Bicarb 325 MG Tab*] 650 mg PO BID #60 tab Patiromer Calcium Sorbitex [Veltassa] 8.4 gm PO DAILY #30 powd.pack Diet: Renal Activity: Ad melissa Followup: Debi Sweeney MD [ACTIVE - CAN ADMIT] - 1-2 Weeks Time spent managing pt's care (in minutes): 42
[2019-06-30] MEDS ORDERED: SOD POLYSTYREN SUL 15 GM/60 ML UCUP PO ONE (15:00)
[2019-06-30] MEDS ORDERED: DOXAZOSIN 2 MG TAB ONE (16:10)
[2019-06-30 16:47] VITALS: BP 151/65
[2019-06-30 16:55] VITALS: TEMP 97.6
[2019-07-03 09:06] LABS: Hepatitis C Virus RNA (PCR)log <1.18 log IU/mL
[2019-07-05 13:46] LABS: Vitamin D 1,25-Dihydroxy Total 11 pg/mL (18-72); Vitamin D,1,25-OH2, D2 <8 pg/mL
[2019-07-07 05:34] LABS: HBsAG Nonreactive (Nonreactive)
[2019-07-11 08:31] LABS: Albumin, (SPE) 3.1; Alpha-1-Globulins 0.3; Alpha-2-Globulins 0.6; Gamma Globulins 1.4
[2019-07-11 08:32] LABS: Abnormal Protein Band 3 SENT
[2019-07-11 08:41] LABS: INTERPRETATION NORMAL
== END 2019-06-30 17:34 | disposition home or self-care (01) | DRG 641 ==
LOC: 4TH 13:48
PROVIDERS: ADMIT Family Medicine; ATTEND Internal Medicine
DX: E87.70 Fluid overload, unspecified (principal); N17.9 Acute kidney failure, unspecified; N18.4 Chronic kidney disease, stage 4 (severe); I13.0 Hypertensive heart and chronic kidney disease with heart failure and stage 1 through stage 4 chronic kidney disease, or unspecified chronic kidney disease; N25.81 Secondary hyperparathyroidism of renal origin; L03.119 Cellulitis of unspecified part of limb; R06.01 Orthopnea; E11.40 Type 2 diabetes mellitus with diabetic neuropathy, unspecified; E11.22 Type 2 diabetes mellitus with diabetic chronic kidney disease; E11.21 Type 2 diabetes mellitus with diabetic nephropathy; I25.10 Atherosclerotic heart disease of native coronary artery without angina pectoris; I50.9 Heart failure, unspecified; K75.9 Inflammatory liver disease, unspecified; E87.5 Hyperkalemia; N40.0 Benign prostatic hyperplasia without lower urinary tract symptoms; E87.2 Acidosis; D50.9 Iron deficiency anemia, unspecified; D63.8 Anemia in other chronic diseases classified elsewhere; I87.2 Venous insufficiency (chronic) (peripheral); Z95.1 Presence of aortocoronary bypass graft
CPT/HCPCS: 36415; 71045; 76770; 80053; 80069; 81001; 82570; 82607; 82652; 82728; 82746; 82947; 83520; 83540; 83735; 83880; 83970; 84100; 84132; 84156; 84165; 84443; 84466; 84550; 85025; 85044; 86021; 86038; 86160; 86225; 86317; 86430; 86704; 86706; 87340; 87522; 93005; 93306; 93970; 94640; 94760; 97110; 97116; 97161; J0360; J0610; J1650; J1940; J2916; J7030

== ENCOUNTER 2019-08-06 08:10 | Emergency (ER) | payer OTHER ==
[2019-08-06] MEDS ORDERED: NA CHLORIDE 0.9% 500 ML ONE ×2 (08:38→09:53)
[2019-08-06 09:02] LABS: Basophils % 0.7 % (0-1.3); Lymphocytes % 24.2 % (15.3-44.8); MPV 10.7 fL (7.6-11.3); RBC Red Blood Cell Count 1.92 M/uL (4.33-5.43)
[2019-08-06 09:04] LABS: Protime INR 1.36
[2019-08-06 09:08] LABS: Hematocrit 19.2 % (39.6-49.0)
[2019-08-06] MEDS ORDERED: PANTOPRAZOLE 40 MG INJ ONE (09:26)
--- NOTE | 2019-08-06 09:33 | ER ---
Nurse's Notes [facility] Name: Jack Herzog Age: 88 yrs Sex: Male : 1930 Arrival Date: 08/06/2019 Time: 08:16 Bed 20 Private MD: Diagnosis: Anemia, unspecified;Syncope and collapse;Gastrointestinal Bleed Presentation: 08/05 08:09 Chief complaint: EMS states: Pt. 88 yr. old, A \T\ O x 4, c/o bright red blood in stool rb1 and this morning he passed out and the family helped him to the floor. Pt. denies falling or hitting his head. Vital signs are stable. BS 174. 18 G R AC with NS bolus infusing. History of CABG, HTN, diabetes, and renal failure. Allergic to Penicillin and Bactrim. He does take Eliquis. Coronavirus screen: Proceed with normal triage. Ebola Screen: Patient negative for fever greater than or equal to 101.5 degrees Fahrenheit, and additional compatible Ebola Virus Disease symptoms. Initial Sepsis Screen: Does the patient meet any 2 criteria? No. Patient's initial sepsis screen is negative. Does the patient have a suspected source of infection? No. Patient's initial sepsis screen is negative. Risk Assessment: Do you want to hurt yourself or someone else? Patient reports no desire to harm self or others. Onset of symptoms was August 05, 2019. 08:09 Method Of Arrival: EMS: [facility] rb1 08:09 Acuity: ANTOINE 3 rb1 Triage Assessment: 08:09 General: Appears in no apparent distress. comfortable, Behavior is calm, cooperative, rb1 Denies fever, feeling ill. Pain: Complains of pain in anterior aspect of right upper chest Pain does not radiate. Pain currently is 3 out of 10 on a pain scale. Pain began 1 day ago. Is continuous. Neuro: Level of Consciousness is awake, alert, obeys commands, Oriented to person, place, time, situation, Reports dizziness, when standing Denies headache. Cardiovascular: Capillary refill < 3 seconds is brisk in bilateral fingers. Respiratory: Airway is patent Respiratory effort is even, unlabored, Respiratory pattern is regular, symmetrical, Denies shortness of breath. GI: Reports bloody stool, since x 1 day Patient currently denies nausea, vomiting. : No signs and/or symptoms were reported regarding the genitourinary system. Derm: Skin is dry, Skin is pale, Skin temperature is warm. Musculoskeletal: Range of motion: intact in all extremities. Historical: - Allergies: 08: Bactrim; rb1 08: PENICILLINS; rb1 - Home Meds: 08: metoprolol tartrate 50 mg Oral tab 2 tabs 2 times per day [Active]; doxazosin 4 mg oral rb1 tab 2 tabs twice a day [Active]; sodium bicarbonate 650 mg Oral tab 650 mg twice a day [Active]; Eliquis 2.5 mg oral tab 1 tab 2 times per day [Active]; allopurinol 100 mg Oral tab 1 tab once daily [Active]; bumetanide 1 mg Oral tab 1 tab once daily [Active]; calcitriol 0.25 mcg oral cap 1 cap every 48 hours [Active]; Vitamin D2 50,000 unit oral cap 1 cap once wkly [Active]; Veltassa 8.4 gram oral pwpk 1 packet once daily [Active]; - PMHx: 08: Hypertension; Diabetes - NIDDM; Myocardial infarction; Renal Failure; rb1 - PSHx: 08: Heart stents; Carotid Artery Surgery; 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 - Social history:: Smoking status: Patient/guardian denies using. - Family history:: not pertinent. - Hospitalizations: : No recent hospitalization is reported. Screenin:09 Abuse screen: Denies threats or abuse. Nutritional screening: No deficits noted. rb1 Tuberculosis screening: No symptoms or risk factors identified. Fall Risk Fall in past 12 months (25 points). Secondary diagnosis (15 points) impaired mobility, IV access (20 points). Ambulatory Aid- Crutches/Cane/Walker (15 pts). Gait- Impaired (20 pts.). Mental Status- Oriented to own ability (0 pts). Total Calderon Fall Scale indicates High Risk Score (45 or more points). Fall prevention measures have been instituted. Side Rails Up X 2 Placed Close to Nursing Station 1:1 Attendant Assigned Frequent Obs/Assessments Occuring As available patient and family educated on Fall Prevention Program and Strategies. Assessment: 08:09 General: See triage assessment. rb1 :08 Reassessment: Patient appears in no apparent distress at this time. Patient and/or rb1 family updated on plan of care and expected duration. Pain level reassessed. Patient is alert, oriented x 3, equal unlabored respirations, skin warm/dry/pink. Pt. reports that he is uncomfortable due to the pain in the right chest, pain 3/10. Provider notified. No new orders received at this time. 10:00 Reassessment: Patient appears in no apparent distress at this time. No changes from rb1 previously documented assessment. 10:10 Reassessment: Initiated platelet infusion. Pt. denies pain at this time. rb1 10:25 Reassessment: Patient appears in no apparent distress at this time. No signs or rb1 symptoms of adverse reaction noted at this time. Pt. denies SOB and itching. Vital signs are stable. 10:38 Reassessment: Gave report to BRANDIE Flowers at [facility]. Information from the [facility] was rb1 given. All questions asked and answered. 10:45 Reassessment: Platelet infusion is complete. No adverse reaction noted at this time. rb1 Pt. tolerated well. 11:00 Reassessment: Patient appears in no apparent distress at this time. Patient and/or rb1 family updated on plan of care and expected duration. Pain level reassessed. Patient is alert, oriented x 3, equal unlabored respirations, skin warm/dry/pink. Respiratory: Denies shortness of breath. 11:15 Reassessment: Initiated infusion for the PRBC. Pt. denies pain at this time. rb1 11:30 Reassessment: Patient appears in no apparent distress at this time. No changes from rb1 previously documented assessment. Gave report to [facility] and verified PRBC's with them. Proper paperwork was filled out and sent with them to continue the blood transfusion. 11:31 Reassessment: No adverse reaction noted at this time. Pt. denies SOB or itching. Vital rb1 signs are stable. Vital Signs: 08:09 BP 113 / 58; Pulse 75; Resp 16; Temp 97.6(O); Pulse Ox 100% on R/A; Weight 77.11 kg rb1 (R); Height 5 ft. 10 in. (177.80 cm) (R); Pain 3/10; 09:09 BP 120 / 57; Pulse 78; Resp 19; Pulse Ox 100% on R/A; Pain 3/10; rb1 10:00 BP 106 / 68; Pulse 77; Resp 16; Temp 97.3; Pulse Ox 100% on R/A; rb1 11:00 BP 121 / 63; Pulse 76; Resp 19; Temp 97.4(TE); Pulse Ox 100% on R/A; rb1 11:30 BP 112 / 70; Pulse 80; Resp 17; Temp 97.6(TE); Pulse Ox 100% on R/A; rb1 08:09 Body Mass Index 24.39 (77.11 kg, 177.80 cm) rb1 ED Course: 08:09 Maintain EMS IV. Dressing intact. Good blood return noted. Site clean \T\ dry. Gauge \T\ rb 1 site: 18 G R AC. Patient maintains SpO2 saturation greater than 95% on room air. 08:09 Arm band placed on right wrist. rb1 08:09 Patient has correct armband on for positive identification. Bed in low position. Call rb1 light in reach. Side rails up X2. monitoring coordinator on. Pulse ox on. NIBP on. Warm blanket given. 08:16 Patient arrived in ED. rn 08:17 Samm Zelaya MD is Attending Physician. rn 08:22 Lorena Mackenzie, BRANDIE is Primary Nurse. rb1 08:28 Triage completed. rb1 08:44 Initial lab(s) drawn, by me, sent to lab. T\T\S collected, blood band applied to patient. em1 Inserted saline lock: 22 gauge in right forearm, using aseptic technique. Blood collected. 09:02 EKG done, by ED staff, reviewed by Samm Zelaya MD. em1 09:28 initiated a transfer with Leigh Moon with the [facility] Transfer [place]. eb 09:[address] Navas the GI documentation nurse for [facility] with Dr. Zelaya for patient eb transfer consultation. 09:[address] Christine the hospitalist documentation nurse for [facility] with Dr. Zelaya for eb patient transfer consultation. 10:11 administrative approval given by Leigh Moon/ patient has been accepted to [facility] 7 Lopez B Rm 20/ Dr. Christine has accepted the patient in transfer/ report to be called to [phone]. 11:40 No provider procedures requiring assistance completed. Patient transferred, IV remains rb1 in place. Administered Medications: 08:38 Drug: NS 0.9% 500 ml Route: IV; Rate: bolus; Site: right antecubital; rb1 09:10 Follow up: IV Status: Completed infusion rb1 09:24 Drug: ProTONIX 40 mg Route: IVP; Site: right antecubital; rb1 09:40 Follow up: Response: No adverse reaction rb1 09:40 Drug: fentaNYL (PF) 25 mcg Route: IVP; Site: right antecubital; rb1 09:55 Follow up: Response: No adverse reaction; Pain is decreased rb1 09:56 Drug: ProTONIX 8 mg/hr Route: IV; Rate: 25 ml/hr; Site: right forearm; rb1 11:40 Follow up: IV Status: Infusion continued upon transfer rb1 Point of Care Testing: Ranges: Outcome: 09:32 ER care complete, transfer ordered by . rn 11:40 Patient left the ED. rb1 11:40 Transferred by ground EMS to [facility], Transfer form completed. rb1 11:40 Condition: stable 11:40 Instructed on the need for transfer. Signatures: Samm Zelaya MD MD rn Martinez, Eric em1 Lorena Mackenzie RN RN rb1 Sunshine Núñez RN RN tw2 Leigh Monson Corrections: (The following items were deleted from the chart) 12:47 12:05 Patient left the ED. tw2 rb1 15:22 10:25 Reassessment: Patient appears in no apparent distress at this time. No signs or rb1 symptoms of adverse reaction noted at this time. Pt. SOB and itching. Vital signs are stable. rb1
--- NOTE | 2019-08-06 09:33 | EDPHYS ---
Physician Documentation [facility] Name: Jack Herzog Age: 88 yrs Sex: Male : 1930 Arrival Date: 08/06/2019 Time: 08:16 Bed 20 Private MD: ED Physician Samm Zelaya HPI: 08/05 08:23 This 88 yrs old Male presents to ER via Unassigned with complaints of GI rn Bleeding. 08:23 The patient presents to the emergency department with rectal bleeding, a moderate rn amount, bright red blood with bowel movement, with multiple such episodes. Onset: The symptoms/episode began/occurred yesterday. Abdominal pain: none is appreciated. Modifying factors: The symptoms are alleviated by nothing, the symptoms are aggravated by nothing. Severity of symptoms: At their worst the symptoms were moderate in the emergency department the symptoms are unchanged. The patient has experienced similar episodes in the past. The patient has not recently seen a physician. Reports syncopal episode prior to arrival after having bloody bowel movement, mostly bright red blood but EMS reports some dark stool, patient reports dark stool yesterday and hx of UGIB. Denies abd pain. Denies sob. Ran out of acid medication recently. . Historical: - Allergies: 08:09 Bactrim; rb1 08:09 PENICILLINS; rb1 - Home Meds: 08:09 metoprolol tartrate 50 mg Oral tab 2 tabs 2 times per day [Active]; doxazosin 4 mg oral rb1 tab 2 tabs twice a day [Active]; sodium bicarbonate 650 mg Oral tab 650 mg twice a day [Active]; Eliquis 2.5 mg oral tab 1 tab 2 times per day [Active]; allopurinol 100 mg Oral tab 1 tab once daily [Active]; bumetanide 1 mg Oral tab 1 tab once daily [Active]; calcitriol 0.25 mcg oral cap 1 cap every 48 hours [Active]; Vitamin D2 50,000 unit oral cap 1 cap once wkly [Active]; Veltassa 8.4 gram oral pwpk 1 packet once daily [Active]; - PMHx: 08:09 Hypertension; Diabetes - NIDDM; Myocardial infarction; Renal Failure; rb1 - PSHx: 08:09 Heart stents; Carotid Artery Surgery; 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 - Social history:: Smoking status: Patient/guardian denies using. - Family history:: not pertinent. - Hospitalizations: : No recent hospitalization is reported. ROS: 08:23 Constitutional: Negative for fever, chills, and weight loss, Eyes: Negative for injury, rn pain, redness, and discharge, Neck: Negative for injury, pain, and swelling, Cardiovascular: Negative for chest pain, palpitations, and edema, Respiratory: Negative for shortness of breath, cough, wheezing, and pleuritic chest pain, Abdomen/GI: Negative for abdominal pain, + bloody bowel movements MS/Extremity: Negative for injury and deformity, Skin: Negative for injury, rash, and discoloration, Neuro: Negative for headache, numbness, tingling, and seizure. Exam: 08:23 Constitutional: This is a well developed, well nourished patient who is awake, alert, rn and in no acute distress. Head/Face: Normocephalic, atraumatic. Eyes: Pale conjunctivae ENT: MMM Cardiovascular: Regular rate and rhythm. No pulse deficits. Respiratory: No increased work of breathing, no retractions or nasal flaring. Abdomen/GI: soft, non-tender Skin: Warm, dry MS/ Extremity: Pulses equal, no cyanosis. Neurovascular intact. Full, normal range of motion. Equal circumference. Neuro: Awake and alert, GCS 15, oriented to person, place, time, and situation. 09:32 ECG was reviewed by the Attending Physician. rn Vital Signs: 08:09 BP 113 / 58; Pulse 75; Resp 16; Temp 97.6(O); Pulse Ox 100% on R/A; Weight 77.11 kg rb1 (R); Height 5 ft. 10 in. (177.80 cm) (R); Pain 3/10; 09:09 BP 120 / 57; Pulse 78; Resp 19; Pulse Ox 100% on R/A; Pain 3/10; rb1 10:00 BP 106 / 68; Pulse 77; Resp 16; Temp 97.3; Pulse Ox 100% on R/A; rb1 11:00 BP 121 / 63; Pulse 76; Resp 19; Temp 97.4(TE); Pulse Ox 100% on R/A; rb1 11:30 BP 112 / 70; Pulse 80; Resp 17; Temp 97.6(TE); Pulse Ox 100% on R/A; rb1 08:09 Body Mass Index 24.39 (77.11 kg, 177.80 cm) rb1 MDM: 08:17 Patient medically screened. rn 09:26 Differential diagnosis: gastritis, ulcers, UGIB, mid-GIB. Data reviewed: vital signs, rn nurses notes, lab test result(s), EKG, and as a result, I will admit patient. Counseling: I had a detailed discussion with the patient and/or guardian regarding: the historical points, exam findings, and any diagnostic results supporting the discharge/admit diagnosis, lab results, the need for further work-up and treatment in the hospital, the need to transfer to another facility, for higher level of care, [facility] does not immediately have the required specialist. ED course: Pt with hemoglobin 6, low platelets which is not new, protonix drip started, blood ordered, platelets ordered. initiated transfer to [facility] 05/22 not having GI here. Stable vitals, no further bleeding episodes here. . 08/05 08:18 Order name: Basic Metabolic Panel; Complete Time: 09:48 rn 08/05 08:18 Order name: CBC with Diff; Complete Time: 09:59 rn 08/05 08:18 Order name: Hepatic Function; Complete Time: 09:48 08/05 08:18 Order name: Lipase; Complete Time: 09:48 08/05 08:18 Order name: Protime (+inr); Complete Time: 09:17 rn 08/05 08:18 Order name: Ptt, Activated; Complete Time: 09:17 rn 08/05 08:19 Order name: Lactate; Complete Time: 09:26 rn 08/05 08:20 Order name: Type And Screen rn 08/05 08:41 Order name: Glucose, Ancillary Testing; Complete Time: 09:00 EDWY 08/05 09:03 Order name: Troponin (Emerg Dept Use Only); Complete Time: 09:48 EDW[place] 08/05 09:23 Order name: Bb Add On eb 08/05 09:34 Order name: Packed RBC Leukored EDWY 08/05 09:34 Order name: Platelets, Leukored Pheresis EDW[place] 08/05 08:18 Order name: IV Saline Lock; Complete Time: 08:44 rn 08/05 08:18 Order name: Labs collected and sent; Complete Time: 08:44 rn 08/05 08:18 Order name: EKG; Complete Time: 08:19 rn 08/05 08:18 Order name: EKG - Nurse/Tech; Complete Time: 09:02 rn 08/05 09:42 Order name: ABO/RH no charge; Complete Time: 09:48 EDMS 08/05 09:49 Order name: CBC Smear Scan; Complete Time: 09:59 EDMS EC:32 Rate is 76 beats/min. Rhythm is irregularly irregular. QRS is positive in lead aVF and rn negative in lead I. QRS interval is prolonged. QT interval is normal. No Q waves. Clinical impression: Atrial Fibrillation and Bifascicular block. Interpreted by me. Reviewed by me. Administered Medications: 08:38 Drug: NS 0.9% 500 ml Route: IV; Rate: bolus; Site: right antecubital; rb1 09:10 Follow up: IV Status: Completed infusion rb1 09:24 Drug: ProTONIX 40 mg Route: IVP; Site: right antecubital; rb1 09:40 Follow up: Response: No adverse reaction rb1 09:40 Drug: fentaNYL (PF) 25 mcg Route: IVP; Site: right antecubital; rb1 09:55 Follow up: Response: No adverse reaction; Pain is decreased rb1 09:56 Drug: ProTONIX 8 mg/hr Route: IV; Rate: 25 ml/hr; Site: right forearm; rb1 11:40 Follow up: IV Status: Infusion continued upon transfer rb1 Point of Care Testing: Ranges: Critical Glucose Levels:Adult <50 mg/dl or >400 mg/dl <40 mg/dl or >180 mg/dl Disposition: 08/06/19 09:32 Transfer ordered to [facility]. Diagnosis are Anemia, unspecified, Syncope and collapse, Gastrointestinal Bleed. - Reason for transfer: Higher level of care. - Accepting physician is Dr. Christine. - Condition is Stable. - Problem is new. - Symptoms have improved. Signatures: Dispatcher [employer] EDMS Samm Zelaya MD MD rn Barber, Rebecca RN RN rb1 Sunshine Núñez RN RN tw2 Corrections: (The following items were deleted from the chart) 09:09 09:02 TROPONIN (EMERG DEPT USE ONLY)+C.LAB.BRZ ordered. EDMS EDMS 10:02 09:32 08/06/2019 09:32 Transfer ordered to [facility]. rn Diagnosis is Anemia, unspecified; Syncope and collapse; Gastrointestinal Bleed. Reason for transfer: Higher level of care. Accepting physician is . Condition is Stable. Problem is new. Symptoms have improved. rn 12:05 10:02 08/06/2019 09:32 Transfer ordered to [facility]. tw2 Diagnosis is Anemia, unspecified; Syncope and collapse; Gastrointestinal Bleed. Reason for transfer: Higher level of care. Accepting physician is Dr. Christine. Condition is Stable. Problem is new. Symptoms have improved. rn
[2019-08-06 09:37] LABS: Albumin 2.4 g/dL (3.4-5.0); Bilirubin Direct 0.2 mg/dL (0-0.2); Bilirubin Total 0.3 mg/dL (0.2-1.0); Potassium 4.9 mmol/L (3.5-5.1); Troponin (Emerg Dept Use Only) 0.24 ng/mL (0.0-0.045)
[2019-08-06] MEDS ORDERED: FENTANYL CITR 100 MCG/2 ML ONE (09:40)
[2019-08-06 09:49] LABS: Blood Morphology Comment NOT SEEN (NOT SEEN); Platelet Estimate DECR; Urine White Blood Cell Casts OK
[2019-08-06] MEDS ORDERED: PANTOPRAZOLE INJ 80 MG in NA CHLORIDE 0.9% 250 ML IV SCH (10:00)
[2019-08-06 12:12] VITALS: BP 120/57; O2SAT 100
--- NOTE | 2019-08-07 07:40 | EKG ---
Test Date: 2019-08-06 Test Time: 08:56:06 Insurance Special Agent: CHRISTA MEASUREMENT RESULTS: Intervals: Rate: 76 IL: QRSD: 172 QT: 456 QTc: 513 Richardson: P: IL: QRS: 121 T: 107 INTERPRETIVE STATEMENTS: Atrial fibrillation Right bundle branch block Left posterior fascicular block Bifascicular block T wave abnormality, consider inferior ischemia Abnormal ECG Compared to ECG 06/28/2019 15:11:39 Left posterior fascicular block now present Bifascicular block now present T-wave abnormality still present Possible ischemia still present Electronically Signed On 08-07-19 07:38:53 CDT by Vamshi Head
== END 2019-08-06 12:05 | disposition short-term general hospital (02) ==
LOC: ER 08:10
PROC: 30233R1 Transfusion of Nonautologous Platelets into Peripheral Vein, Percutaneous Approach (ICD-10-PCS; principal; 2019-08-06)
PROC: 30233N1 Transfusion of Nonautologous Red Blood Cells into Peripheral Vein, Percutaneous Approach (ICD-10-PCS; 2019-08-06)
DX: D64.9 Anemia, unspecified (principal); R55 Syncope and collapse; N19 Unspecified kidney failure; I10 Essential (primary) hypertension; E11.9 Type 2 diabetes mellitus without complications; I25.2 Old myocardial infarction; Z95.818 Presence of other cardiac implants and grafts; Z79.02 Long term (current) use of antithrombotics/antiplatelets; Z88.0 Allergy status to penicillin; Z88.1 Allergy status to other antibiotic agents
CPT/HCPCS: 96365; 96361; 93005; 85025; 80048; 36415; 86900; 86850; 85610; 86901; 82947; 80076; 83605 ×2; 85730; 84484; 83690; 96375; 99285; 96366; 36430; C9113 ×2; J3010; P9035; P9016; J7030 ×2; J7040